=== PATIENT | female | born 1985 | race Hispanic/Latino ===

== ENCOUNTER 2018-09-06 03:38 | Emergency (ER) | payer MEDICAID ==
[2018-09-06] MEDS ORDERED: LIDOCAINE HCL 2% VISCOUS 15 ML UDCUP ONE (04:19)
[2018-09-06] MEDS ORDERED: KETOROLAC TROMETHAMINE 60 MG/2 ML VIAL ONE (04:20)
[2018-09-06] MEDS ORDERED: CLINDAMYCIN HCL 150 MG CAP ONE (04:20)
== END 2018-09-06 04:35 | disposition home or self-care (01) ==
LOC: EDH 03:38
DX: K05.10 Chronic gingivitis, plaque induced (principal); K08.89 Other specified disorders of teeth and supporting structures
CPT/HCPCS: 96372; 99283; J1885

== ENCOUNTER 2021-09-23 12:41 | Emergency (ER) | payer MEDICAID, OTHER ==
[~2021-09-23] VITALS: Ht 160 cm; Wt 99.8 kg
[2021-09-23 12:46] VITALS: BP 195/94
== END 2021-09-23 13:43 | disposition left against medical advice (07) ==
LOC: EDH 12:41
DX: S61.011A Laceration without foreign body of right thumb without damage to nail, initial encounter (principal); Z53.21 Procedure and treatment not carried out due to patient leaving prior to being seen by health care provider; X58.XXXA Exposure to other specified factors, initial encounter; Y93.89 Activity, other specified; Y92.89 Other specified places as the place of occurrence of the external cause; Y99.8 Other external cause status

== ENCOUNTER 2024-08-17 01:31 | Inpatient (IN) | payer SELFPAY ==
[~2024-08-17] VITALS: Ht 157.5 cm; Wt 102.6 kg
[2024-08-17] MEDS: hydrALAZine 20MG/ML VIAL IV ONE (02:03)
[2024-08-17] MEDS: [UNRECOGNIZED DRUG - OTHER] IV ONE (02:05)
[2024-08-17] MEDS: cefTRIAXone 1G VIAL IVPB ONE (02:06)
[2024-08-17] MEDS: acetaMINOPHEN 500 MG TABLET PO ONE (02:06)
[2024-08-17] MEDS: ALPRAZolam 0.5 MG TABLET PO ONE (02:06)
[2024-08-17] MEDS: ondanSETRON 4MG INJ IVP ONE (02:06)
[2024-08-17 02:07] LABS: BASOPHILS # (AUTO) 0.06 K/uL (0.00-0.20); BASOPHILS % (AUTO) 0.3 % (0.0-5.0); EOSINOPHILS # (AUTO) 0.02 K/uL (0.00-0.70); EOSINOPHILS % (AUTO) 0.1 % (0.0-8.0); HEMATOCRIT 43.5 % (36-48); IMMATURE GRANULOCYTE ABSOLUTE 0.14 K/uL (0-1); LYMPHOCYTES # (AUTO) 0.8 K/uL (1.0-4.8); LYMPHOCYTES % (AUTO) 4.4 % (21.0-51.0); MEAN CORPUSCULAR HEMOGLOBIN 26.5 pg (27.0-33.0); MEAN CORPUSCULAR HGB CONC 33.3 g/dL (32.0-36.0); MEAN CORPUSCULAR VOLUME 79.4 fL (79-99); MONOCYTES % (AUTO) 4.9 % (3.0-13.0); NEUTROPHILS # (AUTO) 17.2 K/uL (1.8-7.7); NEUTROPHILS % (AUTO) 89.6 % (40.0-77.0); PLATELET COUNT (AUTO) 178 K/uL (130-400); RED BLOOD CELL COUNT(AUTO) 5.48 MIL/uL (4.00-5.50); RED CELL DISTRIBUTION WIDTH 14.5 % (11.0-15.5); WHITE BLOOD COUNT (AUTO) 19.3 K/uL (4.8-10.8)
[2024-08-17] MEDS: hydrALAZine 20MG/ML VIAL ONE (02:07)
[2024-08-17 02:25] LABS: RAPID GROUP A STREP negative (NEGATIVE)
[2024-08-17 02:26] LABS: ALBUMIN 3.6 g/dL (3.5-5.0); BILIRUBIN,DIRECT 0.1 mg/dL (0.0-0.3); BILIRUBIN,TOTAL 0.7 mg/dL (0.2-1.0); CREATININE 0.9 mg/dL (0.5-1.0); TOTAL PROTEIN, SERUM 7.9 g/dL (6.0-8.3)
[2024-08-17 02:29] LABS: POTASSIUM 2.9 mmol/L (3.5-5.1)
[2024-08-17 02:31] LABS: WBC MORPHOLOGY CONSISTENT W/DIFF
[2024-08-17 02:36] LABS: COVID19 (SARS ANTIGEN RAPID) PRESUMPTIVE NEGATIVE (NEGATIVE); INFLUENZA TYPE A Negative For Type A (NEGATIVE); INFLUENZA TYPE B Negative For Type B (NEGATIVE)
--- NOTE | 2024-08-17 02:41 | ERN ---
General Chief Complaint: Low Back Pain/Injury Stated Complaint: BACK PAIN LEFT SIDE Time Seen by MD: 01:42 Time Seen by Midlevel: 01:42 Source: patient History of Present Illness Initial Comments 39-year-old female who presents to the emergency department due to left back/flank pain onset yesterday afternoon. Patient reports she took Tylenol. Reports nausea, vomiting, shortness of breath, abdominal pain. Patient states she had dysuria one week ago took [id number] medication and has resolved. PMHx HTN, patient is noncompliant has not taken medications x3 years. Allergies: Coded Allergies: No Known Allergies (Unverified Allergy, Unknown, 08/17/24) Past Medical History Past Medical History: Hypertension Past Surgical History: ROS Dictation Constitutional: Negative for fever,chills, and weight loss Eyes: Negative for injury, pain,redness, and discharge ENT: Negative for injury,pain or swelling Cardiovascular: Negative for chest pain, palpitations, and edema Respiratory: Negative for shortness of breath, cough, and wheezing, Abdomen/GI: Positive for abdominal pain, nausea, vomiting Negative for diarrhea, and constipation Back: Positive for left sided back/flank pain Negative for injury and pain : Negative for painful urination, bleeding or discharge MS/Extremity: Negative for injury and deformity Skin: Negative for rash, and discoloration Neuro: Negative for headache, weakness, numbness, tingling, and seizure Psych: Negative for suicide ideation, homicidal ideation, and hallucinations Physical Exam Physical Exam Dictation General: awake, alert, no acute distress Head/Face: Normocephalic, atraumatic Eyes: PERRL, EOMI, normal conjuctiva ENT: oral cavity clear, oral mucosa moist Neck: Supple, normal range of motion Cardiovascular: RRR, normal S1/S2 Respiratory: CTAB, no respiratory distress, no rales or wheezes Back: Left CVA tenderness Abdomen: Soft, non-tender, non-distended, no guarding or rebound. Skin: Warm, dry, normal turgor, no rash MS/Extremity: Pulses equal, no cyanosis, neurovascular intact, FROM Neuro: COAx4, GCS 15, strength 5/5, CN 2-12 intact, normal cerebellar exam, normal gait Psych: Normal behavior, mood, and affect normal Results Laboratory and Microbiology Lab and Micro Result Laboratory Tests Test 08/17/24 01:56 08/17/24 02:45 08/17/24 05:00 White Blood Count 19.3 K/uL (4.8-10.8) H Red Blood Count 5.48 MIL/uL (4.00-5.50) Hemoglobin 14.5 g/dL (12.0-16.0) Hematocrit 43.5 % (36-48) Mean Corpuscular Volume 79.4 fL (79-99) Mean Corpuscular Hemoglobin 26.5 pg (27.0-33.0) L Mean Corpuscular Hemoglobin Concent 33.3 g/dL (32.0-36.0) Red Cell Distribution Width 14.5 % (11.0-15.5) Platelet Count 178 K/uL (130-400) Mean Platelet Volume 11.1 fL (7.5-10.5) H Immature Granulocyte % (Auto) 0.7 % (0-1) Neutrophils (%) (Auto) 89.6 % (40.0-77.0) H Lymphocytes (%) (Auto) 4.4 % (21.0-51.0) L Monocytes (%) (Auto) 4.9 % (3.0-13.0) Eosinophils (%) (Auto) 0.1 % (0.0-8.0) Basophils (%) (Auto) 0.3 % (0.0-5.0) Neutrophils # (Auto) 17.2 K/uL (1.8-7.7) H Lymphocytes # (Auto) 0.8 K/uL (1.0-4.8) L Monocytes # (Auto) 1.0 K/uL (0.1-1.0) Eosinophils # (Auto) 0.02 K/uL (0.00-0.70) Basophils # (Auto) 0.06 K/uL (0.00-0.20) Absolute Immature Granulocyte (auto 0.14 K/uL (0-1) Nucleated Red Blood Cells 0.0 % (0.0-0.19) White Cell Morphology Comment CONSISTENT W/DIFF Sodium Level 135 mmol/L (136-145) L Potassium Level 2.9 mmol/L (3.5-5.1) *L Chloride Level 100 mmol/L (101-111) L Carbon Dioxide Level 26 mmol/L (21-32) Blood Urea Nitrogen 18 mg/dL (7-18) Creatinine 0.9 mg/dL (0.5-1.0) Glomerular Filtration Rate Calc 84 mL/min (>90) Random Glucose 214 mg/dL (70-105) H Lactic Acid Level 1.9 mmol/L (0.8-2.5) 1.7 mmol/L (0.8-2.5) Total Calcium 8.9 mg/dL (8.5-10.1) Total Bilirubin 0.7 mg/dL (0.2-1.0) Direct Bilirubin 0.1 mg/dL (0.0-0.3) Aspartate Amino Transf (AST/SGOT) 21 U/L (10-37) Alanine Aminotransferase (ALT/SGPT) 27 U/L (12-78) Alkaline Phosphatase 108 U/L (50-136) Total Protein 7.9 g/dL (6.0-8.3) Albumin 3.6 g/dL (3.5-5.0) Lipase 33 U/L (16-77) Influenza Type A Antigen Negative For Type A Influenza Type B Antigen Negative For Type B SARS-CoV-2 Antigen (Rapid) PRESUMPTIVE NEGATIVE Group A Streptococcus Rapid negative (NEGATIVE) Urine Color COLORLESS (YELLOW) Urine Appearance CLEAR (CLEAR) Urine pH 7.0 (5.0-8.0) Urine Specific [place] 1.009 (1.001-1.031) Urine Protein 100 mg/dL (NEGATIVE) H Urine Glucose (UA) 150 mg/dL (NEGATIVE) H Urine Ketones 5 mg/dL (NEGATIVE) H Urine Occult Blood MODERATE (NEGATIVE) H Urine Nitrate NEGATIVE (NEGATIVE) Urine Bilirubin NEGATIVE mg/dL (NEGATIVE) Urine Urobilinogen 0.2 mg/dL (0.2-1.0) Urine Leukocyte Esterase NEGATIVE Key/uL Urine RBC 11-25 /HPF (0-1) H Urine WBC 6-10 /HPF (0-1) H Urine Squamous Epithelial Cells RARE /HPF (0-2) Urine Bacteria None /HPF (None Seen) Urine HCG, Qualitative NEGATIVE (NEGATIVE) Urine Opiates Screen NEGATIVE (NEGATIVE) Urine Barbiturates Screen NEGATIVE (NEGATIVE) Urine Phencyclidine Screen NEGATIVE (NEGATIVE) Urine Amphetamines Screen NEGATIVE (NEGATIVE) Urine Benzodiazepines Screen NEGATIVE (NEGATIVE) Urine Cocaine Screen NEGATIVE (NEGATIVE) Urine Marijuana (THC) Screen NEGATIVE (NEGATIVE) Labs Reviewed?: Yes EKG/XRAY/US/CT/MRI EKG Comment Date: 08/17/2024 Time: 01:49 Rate: 132 EKG interpretation: Sinus tachycardia, probable left atrial enlargement, LVH with secondary repolarization abnormality, anterior ST elevation probably due to LVH, no STEMI Reviewed by ED Attending MDM MDM: Differential diagnosis: Sepsis of unclear etiology at this time-could be related to upper respiratory tract viral etiology, cystitis, pyelonephritis, cholecystitis, enterocolitis, pneumonia Rationale: 39-year-old female who presents to the emergency department due to left back/flank pain onset yesterday afternoon. Patient reports she took Tylenol. Reports nausea, vomiting, shortness of breath, abdominal pain. Patient states she had dysuria one week ago took [id number] medication and has resolved. PMHx HTN, patient is noncompliant has not taken medications x3 years. Previous outside records reviewed: Old ER visits. Risk of complication and/or morbidity or mortality of patient management: None Medications-Per medication reconciliation Need for hospitalization: Patient does meet criteria for hospitalization. Need for emergency major/minor surgery: No There are no social concerns with this patient. Prescription drug management Prescriptions will include symptomatic care Patient's prior external medical records from other ER visits were reviewed by me as indicated. Prior testing and results from previous visits were reviewed. Prior tests were taken into account with medical decision making and resource utilization, independent historian/historians were used to obtain complete medical history. I independently interpreted the test that were performed, results were reviewed by me and considered findings on radiology if ordered. Medical management and examination interpretation discussions were had by me with other qualified healthcare professionals as indicated for the patient's care. ED Course Orders Procedure Category Date Status Time Cbc With Differential LAB 08/17/24 Complete 01:42 Basic Metabolic Panel LAB 08/17/24 Complete 01:42 Urinalysis LAB 08/17/24 Complete W/Microscopic 01:42 Lipase LAB 08/17/24 Complete 01:42 Blood Cult HUMBERTO 08/17/24 In Process 01:42 Lactic Acid LAB 08/17/24 Complete 01:42 ,Urine Test LAB 08/17/24 Complete 01:42 Hepatic Function Panel LAB 08/17/24 Complete 01:42 Acetaminophen 500mg PHA 08/17/24 Complete Tab (Tylenol 500mg T 02:00 Hydralazine 20mg Inj PHA 08/17/24 Complete (Apresoline 20mg In 02:00 0.9%Nacl 1000ml (Ns PHA 08/17/24 Complete 1000ml) 02:00 Hydralazine 20mg Inj PHA 08/17/24 Complete (Apresoline 20mg In 01:47 Alprazolam 0.5mg PHA 08/17/24 Complete (Xanax 0.5mg) 02:00 Chest 1vw RAD 08/17/24 Taken 01:53 Ct Abdomen/Pelvis CT 08/17/24 Taken W/Contrast 01:55 Ceftriaxone 1g Vial PHA 08/17/24 Complete (Rocephine 1g Inj) 02:00 Ondansetron 4mg Inj PHA 08/17/24 Complete (Zofran 4mg Inj) 02:00 Covid19 (Sars Antigen LAB 08/17/24 Complete Rapid) 02:12 Rapid (Group A Strep) LAB 08/17/24 Complete 02:12 Influenza Type A & B, LAB 08/17/24 Complete Rapid 02:12 Potassium Chloride PHA 08/17/24 Complete 10meq/100ml ([place] 03:00 Nifedipine PHA 08/17/24 Complete (Nifedipine) 03:00 Morphine 4mg Syg PHA 08/17/24 Complete (Morphine 4mg Syg) 03:00 Culture Urine HUMBERTO 08/17/24 In Process 03:20 Drug Screen Urine LAB 08/17/24 Complete 03:24 Iohexol (Omnipaque) PHA 08/17/24 Complete 03:32 Cefepime Hcl 1 Gm PHA 08/17/24 Complete Vial (Maxipime 1 Gm Vi 05:00 Vancomycin 1g/250ml PHA 08/17/24 Complete Kit (Vancomycin 1g/2 05:00 Lactic Acid LAB 08/17/24 Complete 04:42 Current Medications Medications (Trade) Dose Ordered Sig/Mary Route PRN Reason Start Time Stop Time Status Last Admin Dose Admin Acetaminophen (TYLenol 500MG TAB) 1,000 mg ONCE ONCE PO 08/17/24 02:00 08/17/24 02:01 DC 08/17/24 02:06 Alprazolam (XANax 0.5MG) 0.5 mg ONCE ONCE PO 08/17/24 02:00 08/17/24 02:01 DC 08/17/24 02:06 Cefepime HCl (MAXipime 1 GM vial) 1 gm ONCE ONCE IVPB 08/17/24 05:00 08/17/24 05:01 DC 08/17/24 04:46 Ceftriaxone Sodium (ROCEphine 1G INJ) 1 gm ONCE ONCE IVPB 08/17/24 02:00 08/17/24 02:01 DC 08/17/24 02:06 Hydralazine HCl (APRESOLine 20MG INJ) 20 mg ONCE ONCE IV 08/17/24 02:00 08/17/24 02:01 DC 08/17/24 02:03 Hydralazine HCl (APRESOLine 20MG INJ) 20 mg STK-MED ONCE .ROUTE 08/17/24 01:47 08/17/24 01:53 DC Iohexol (Omnipaque) 75 ml STK-MED ONCE IV 08/17/24 03:32 08/17/24 03:37 DC Morphine Sulfate (morPHINE 4MG SYG) 4 mg ONCE ONCE IVP 08/17/24 03:00 08/17/24 03:01 DC 08/17/24 02:49 Nifedipine (nifeDIPine) 10 mg ONCE ONCE PO 08/17/24 03:00 08/17/24 03:01 DC 08/17/24 02:49 Ondansetron HCl (zoFRAN 4MG INJ) 4 mg ONCE ONCE IVP 08/17/24 02:00 08/17/24 02:01 DC 08/17/24 02:06 Potassium Chloride 100 ml @ 100 mls/hr ONCE ONCE IV 08/17/24 03:00 08/17/24 03:59 DC 08/17/24 03:09 Sodium Chloride 2,925 ml @ 975 mls/hr ONCE ONCE IV 08/17/24 02:00 08/17/24 04:59 DC 08/17/24 02:05 Vancomycin HCl (Vancomycin 1g/ 250ml Kit) 1 gm ONCE ONCE IV 08/17/24 05:00 08/17/24 05:01 DC 08/17/24 04:46 Vital Signs Date Time Temp Pulse Resp B/P (MAP) Pulse Ox O2 Delivery O2 Flow Rate FiO2 08/17/24 03:10 101.1 125 25 170/85 99 Room Air* 0 21 08/17/24 02:16 101.1 144 32 245/120 100 Room Air* 0 21 08/17/24 02:06 101.1 08/17/24 01:32 101.1 131 22 230/112 96 Room Air We will perform diagnostic labs, advanced imaging and administer medications according to the patient's complaint. Once the results are available, will review and personally interpreted the labs to rule out any acute life- threatening emergency the trach require immediate intervention and treatment. I will then re-evaluate the patient after treatment and diagnostic exams have return to determine whether the patient requires any further testing, can safely be discharged home or need further admission to hospital for additional treatment and evaluation. Sepsis pathway was initiated and patient received IV fluids at 30 mL/hour, brown cultures have been requested. Labs reviewed CBC showed a white count of 19.3 BNP 7 is significant for sodium of 135 chloride 2.9 glucose 214. LFTs are within normal limits lipase is 33. Lactic acid 1.9 Influenza, COVID, strep rapid screens were negative. Urinalysis shows occult and microscopic hematuria proteinuria and some glycosuria. No evidence of any WBCs or leuko esterase. Chest x-ray shows massive cardiomegaly there are no old chest x-rays to compare. A CT scan of the abdomen and pelvis was done to evaluate for source of sepsis- preliminary stat read reading showed normal appendix no hydronephrosis or nephrolithiasis. Overall it was a negative study Recommend admission to the hospital for management of sepsis of unclear etiology at this time which could still be GI related. The other issue is hypertensive crisis. She needs further evaluation of likely hypertension induced end-organ damage, diastolic dysfunction cardiomegaly etcetera. The persistent fever tachy and uncontrolled hypertension may reflect high sympathetic surge. UDS is negative for any recreational substances. She is agreeable 5:15 a.m. patient accepted by Dr. Wall covering for Dr. Trevino for admission for sepsis of unclear etiology, hypertensive crisis. Problem List Problem Lists: (1) Sepsis (2) Leukocytosis (3) Hypokalemia Critical Care Note Critical Time: 45 minutes Comments Life-threatening illness; severe sepsis, hypertensive crisis, leukocytosis, severe hypokalemia Risk of morbidity mortality-high Complexity of medical decision making-high (X) high probability of sudden clinically significant deterioration in the patient's condition required the highest level of my preparedness to intervene urgently. I provided critical care services requiring my direct and personal ma nagement as noted below; (x) chart data review (x) reviewing nurse's notes and/charts (x) documentation time (x) consultation collaboration on findings and therapy options (x) medication orders and management (x) re-evaluations (x) care, transfer of care, and discharge plans (x) ordering and interpreting studies (x) ordering and reviewing labs (x) obtaining necessary history from family, EMS, custodial, private MD, surrogate decision makers because patient was unable to give history due to limitations in the mental status (x) aggregate critical care time was ( 45 ) minutes. This includes only time during which I was engaged in work directly related to the patient's care as described above whether at the bedside or elsewhere in the ER while the patient was critical. My time did not include minutes spent treating any other patients simultaneously or on activities that did not directly contribute to the patient's treatment. It did not include time spent performing other reported procedures or services of residents if any. Megan Dillon MDFCCP DX & DISP Disposition: Inpatient Decision to Admit Date: August 17, 2024 Departure Impression: Primary Impression: Sepsis Additional Impressions: Hypokalemia, Leukocytosis, Hypertensive crisis, Microscopic hematuria, Cardiomegaly Critical Time: 45 minutes Condition: Stable Additional Instructions: Patient was informed of all the diagnostic labs and procedures conducted in the emergency room today and demonstrated understanding of the results. I personally reviewed and interpreted all the diagnostic exams performed in the ER today. The patient will be admitted to the hospital for further treatment and evaluation. Disposition-admit to facility Condition-stable/guarded Course-uncertain at this time Pain status-decreased Assessment-exam unchanged Admission Certification- I certify that the patients status is appropriate and is based on my best clinical judgment and the patient's condition as documented in the medical records Referrals: RERE TREVINO MD (PCP) I performed the substantive portion of the visit. I have reviewed and personally made and approve the management plan that is documented in the notes by myself or the DAVON. I acknowledge full responsibility for the patient's management plan. RAMESH BONNER August 17, 2024 02:41 MEGAN DILLON MD August 17, 2024 04:48
[2024-08-17] MEDS: nifeDIPine 10 MG CAP PO ONE (02:49)
[2024-08-17] MEDS: morPHINE 4 MG SYG IVP ONE (02:49)
[2024-08-17] MEDS: PoTASSium chloRIDE 10MEQ/100ML 100 ML IV ONE (03:09)
--- NOTE | 2024-08-17 03:11 | NUR ---
PATIENT NOT ON ANY HOME MEDS
[2024-08-17 03:16] LABS: APPEARANCE,URINE CLEAR (CLEAR); BILIRUBIN,URINE NEGATIVE (NEGATIVE); COLOR,URINE COLORLESS (YELLOW); GLUCOSE, URINE (UA) 150 mg/dL (NEGATIVE); KETONES,URINE 5 mg/dL (NEGATIVE); LEUKOCYTE ESTERASE ,URINE NEGATIVE Leu/uL (NEGATIVE); NITRATE,URINE NEGATIVE (NEGATIVE); OCCULT BLOOD,URINE MODERATE (NEGATIVE); PROTEIN,URINE 100 mg/dL (NEGATIVE); UROBILINOGEN,URINE 0.2 mg/dL (0.2-1.0)
[2024-08-17 03:18] LABS: HCG,QUALITATIVE URINE NEGATIVE (NEGATIVE)
[2024-08-17 03:20] LABS: MUCUS,URINE RARE LPF (None Seen); SQUAMOUS EPITHELIAL CELL,UR RARE /HPF (0-2)
--- NOTE | 2024-08-17 03:28 | NUR ---
PATIENT TO CT
[2024-08-17] MEDS ORDERED: IOHEXOL-350 75 ML VIAL IV ONE (03:32)
[2024-08-17 03:42] LABS: AMPHET/METH SCREEN,URINE NEGATIVE (NEGATIVE); BARBITURATE SCREEN, URINE NEGATIVE (NEGATIVE); BENZODIAZEPINES SCREEN,URINE NEGATIVE (NEGATIVE); CANNABINOID SCREEN,URINE NEGATIVE (NEGATIVE); COCAINE SCREEN,URINE NEGATIVE (NEGATIVE); OPIATE SCREEN,URINE NEGATIVE (NEGATIVE); PHENCYCLIDINE SCREEN,URINE NEGATIVE (NEGATIVE)
--- NOTE | 2024-08-17 03:49 | NUR ---
patient returned from CT
[2024-08-17] MEDS: ceFEPime HCL 1 GM VIAL IVPB ONE (04:46)
[2024-08-17] MEDS: VANCOMYCIN KIT 1 GM/250 ML IV.KIT IV ONE (04:46)
[2024-08-17] MEDS ORDERED: VANCOMYCIN KIT 1 GM/250 ML IV.KIT IV SCH (05:30)
[2024-08-17] MEDS: DEXTROSE 5 %-0.45 % NACL 1,000 ML IV SCH (05:34)
[2024-08-17] MEDS ORDERED: VANCOMYCIN PROTOCOL PER PHARMACY IV SCH (06:00)
--- NOTE | 2024-08-17 08:14 | HMCIMG ---
Exam Type: CT ABDOMEN/PELVIS W/CONTRAST Clinical Information: abdominal, left flank pain Comparison: None Contrast: 100 cc's Isovue 370 IV, no complications or adverse reactions CT Dose Index (CTDI): 31.60 mGy Dose Length Product (DLP): 1740.80 total mGy-cm Findings: No evidence of nephro or ureterolithiasis is found. No hydronephrosis or ureteral dilatation is seen. The lung bases are clear. The stomach is unremarkable. It shows no wall thickening. No gross ulceration is seen. It is not overly distended. There are no surrounding inflammatory changes. No wall lesions are identified to suggest cancer. The spleen is unremarkable. It is not enlarged. The pancreas shows normal anatomy. It is not fatty replaced. It shows no lesions. The pancreatic duct is not dilated. The gallbladder is unremarkable. It shows no cholelithiasis. The gallbladder wall is normal in thickness. There is no pericholecystic fluid. The is no acute or chronic inflammation noted. The adrenal glands are unremarkable. There is no enlargement. No lesions are noted. The liver is unremarkable. It shows no focal masses. The appendix is unremarkable. It shows no evidence of inflammation. No appendicolith is seen. The small bowel is unremarkable. There is no evidence of dilatation to suggest obstruction. No evidence of adynamic ileus is seen. There is no small bowel wall thickening to suggest enteritis. The colon is unremarkable. The urinary bladder is unremarkable. There is no wall thickening to suggest tumor or inflammation. There are no intraluminal calculi. There are no diverticula. There is no evidence of chronic bladder outlet obstruction. There is no evidence of urinary bladder distention to suggest urinary retention. The other pelvic structures are unremarkable. The bony and vascular structures are unremarkable for the patient's age. IMPRESSION: NEGATIVE CT SCAN OF THE ABDOMEN AND PELVIS WITH ORAL AND IV CONTRAST. This study was performed using dose reduction techniques to include automated exposure control and/or adjustment of the mA and/or kV according to patient size.
[2024-08-17] MEDS: acetaMINOPHEN 325 MG TAB PO PRN ×2 (08:42→19:43)
--- NOTE | 2024-08-17 08:59 | NUR ---
PT LEFT HAND NOTED PETECHIAE REDNESS AND SWELLING FROM HAND UP TO ELBOW, PT STATES CANNOT BEND ARM FEELS TIGHT STARTED EARLY HOURS OF MORNING. INFOMED ER DR LYNCH AT BEDSIDE, CALLED DR BATES AWARE AND DR BASHIR AWARE (POSSIBLE VANCOMYCIN ALLERGIC REACTION). PT MEDICATED AND WILL MONITOR.
--- NOTE | 2024-08-17 08:59 | NUR ---
DR DASH SENT A MESSAGE IN REFERENCE TO PT L HAND CONCERN/ISSUE AND WHAT MEDS ARE TO BE GIVEN PRIOR TO HER BEING TAKEN UPSTAIRS
[2024-08-17] MEDS: Solu-medROL 40MG VIAL IVP ONE (09:08)
[2024-08-17] MEDS: FAMOTIDINE 20MG VIAL IV ONE (09:08)
[2024-08-17] MEDS: DiphenhydrAMINE HCL 50 MG/ML VIAL IV ONE (09:08)
--- NOTE | 2024-08-17 09:26 | NUR ---
ORDERS OBTAINED FROM DR DASH FOR ART/EULA SONO OR LEFT UPPER ARM TO R/O DVT
[2024-08-17 09:30] VITALS: BP 171/79; PULSE 111; RESP 20; TEMP 98.9; O2SAT 98
--- NOTE | 2024-08-17 09:30 | NUR ---
PATIENT ON UNIT RECEIVED PATIENT FROM ER. NOTED PETECHIAE AND SWELLING TO PATIENT'S LEFT HAND. PATIENT STATES SHE IS UNABLE TO BEND LEFT ARM. DR. DASH AND DR. BASHIR AWARE. PATIENT AAOX3, IN NO APPARENT DISTRESS. BLOOD PRESSURE 167/62, ORDERS FOR ONE TIME DOSE OF METOPROLOL IV ORDERED.
--- NOTE | 2024-08-17 09:36 | HMCIMG ---
Exam Type: CHEST 1VW Clinical Information: sepsis Comparison: None Findings: The lungs are clear of infiltrates. The heart is enlarged. Bony and soft tissue structures of the chest wall are unremarkable. IMPRESSION: Cardiomegaly. Clear lungs.
[2024-08-17] MEDS ORDERED: PoTASSium chloRIDE 20MEQ/100ML 100 ML IV PRN (10:00)
[2024-08-17] MEDS ORDERED: PoTASSium chl 10% ELIXIR 20MEQ 20 MEQ/15 ML UDCUP PO PRN (10:00)
[2024-08-17] MEDS: metoPROLOL tartRATE 1 MG/ML 5ML VIAL IV ONE (11:13)
[2024-08-17 11:34] VITALS: BP 143/70; PULSE 105; RESP 20; TEMP 98.4
--- NOTE | 2024-08-17 12:02 | HMCIMG ---
US ARTERIAL UNILA UPP EXT DUPL HISTORY: SWELLING, DISCOMFORT AND DISCOLORATION TO L HAND/ARM TECHNIQUE: Doppler arterial ultrasound was performed using B mode, color flow and spectral analysis. FINDINGS: LEFT: Normal biphasic and triphasic waveforms were seen in the visualized arteries. Subclavian 185cm/s. Axillary 155cm/s. Brachial 93cm/s. Radial 112cm/s. Ulnar 88cm/s. IMPRESSION: No evidence of major vessel occlusion or high-grade stenosis.
--- NOTE | 2024-08-17 12:08 | HMCIMG ---
US VENOUS DOPPLER UNILATERAL INDICATION: Swelling. SWELLING, DISCOMFORT AND DISCOLORATION TO L HAND/ARM TECHNIQUE: US VENOUS DOPPLER UNILATERAL Real-time venous Doppler ultrasound was performed using B mode, color flow and spectral analysis. FINDINGS: The visualized subclavian, axillary, cephalic, basilic and brachial veins demonstrate normal compressibility and flow without evidence of DVT. IMPRESSION: No evidence of DVT in the visualized left extremity.
--- NOTE | 2024-08-17 12:36 | HMCSR ---
APPROVED REPORT EXAM: Two-dimensional and M-mode echocardiogram with Doppler and color Doppler. INDICATION ICD: I51.7 Cardiomegaly 2D Dimensions RVDd4.5 cmLVEF(%)64.6 (>50%)LVED Vol(simp.)54.0 mL IVSd2.1 (0.7-1.1cm)FS(%)35 %LVES Vol(simp.)20.0 mL LVDd3.8 (3.8-5.6cm)LA (2D)4.4 (1.6-4.0cm)LVEF(%, simp.)63 % PWd2.2 (0.7-1.1cm)Ao Root(2D)2.9 (2.0-3.7cm)LA ESV INDEX (BP)47.37 mL/m2 IVSs2.2 cmLVOT diam2.1 (1.8-2.4cm) LVDs2.5 (2.5-4.0cm)IVC diam0.9 cm PWs2.9 cm Deformation Strain Apical 4-10.6 % Apical 2-10.3 % Apical 3-8.2 % Global Strain-9.7 % M-Mode Dimensions LA (MM)4.5 (1.6-4.0cm) Ao Root(MM)2.8 (2.0-3.7cm) Aortic Valve AoV Vmax1.8 m/Desire Peak GR13.0 mmHgLVOT Vmax1.3 m/s AoV VTI0.3 mAo Mean GR7.7 mmHgLVOT VTI0.21 m UNIQUE (VMAX)2.50 cm2AVA (VTI) 2.5 cm2 Mitral Valve MV E Vmax94.6 cm/sDECEL Ldzt533 ms MV A Zawh223.5 cm/sP 1/2 T29 ms E/A ratio0.8MVA (PHT)7.7 cm2 TDI E/E' Nlghpw82.5E/E' Fhqfczs47.6 Medial E' Peak V3.32 cm/sLateral E' Peak V3.43 cm/s Pulmonary Valve PV Vmax1.4 m/sPV VTI0.21 mPV Mean GR4.2 mmHg PV Peak GR7.6 mmHg Tricuspid Valve TR Vmax2.0 m/sRAP (EST) 3 rbOaMKBK55.2 mmHg TR Peak GR15.2 mmHg Left Ventricle Left ventricular cavity is normal. GLS -10.0%. Apical sparing pattern present. Question amyloid. Shelia re concentric left ventricular hypertrophy. No LVOT obstruction noted. The LVEF is 60-65%. Stage II, diastolic dysfunction. Right Ventricle The right ventricle is mildly dilated. The right ventricular systolic function is normal. Right ventr icle GLS -16.0%. Atria The left atrium is moderately dilated. LASVI 47mL.m�. Cannot exclude PFO by color doppler. The right atrium size is normal. Aortic Valve The aortic valve is normal in structure. No aortic regurgitation is present. No aortic valvular veget ation noted. There is no aortic valvular stenosis. Mitral Valve Mitral valve leaflets open well. MIld posterior annular calcification noted. There is no mitral valve regurgitation noted. There are no mitral valve vegetation noted. There is no mitral valve stenosis. Tricuspid Valve The tricuspid valve leaflets open well. Moderate anterior tricuspid annular calcification noted. Ther e is trace of tricuspid valve regurgitation noted. There is no tricuspid valve vegetation. Pulmonic Valve The pulmonary valve is normal in structure. There is no pulmonic valvular regurgitation. There is no pulmonic valve vegetation. Great Vessels The aortic root is normal in size. The IVC is normal in size and collapses >50% with inspiration. Pericardium There is trivial pericardial effusion. Other Information Quality : Adequate Conclusion Severe concentric left ventricular hypertrophy. No LVOT obstruction noted. The LVEF is 60-65%. Stage II, diastolic dysfunction. GLS -10.0%. Apical sparing pattern present. Question amyloid. There is trivial pericardial effusion.
[2024-08-17] MEDS: PoTASSium chloRIDE 20MEQ ER 20 MEQ ERTAB PO PRN (14:26)
[2024-08-17 15:38] VITALS: BP 151/75; PULSE 94; RESP 20; TEMP 98.2
--- NOTE | 2024-08-17 16:01 | NUR ---
ABNORMAL CULTURE PATIENT WITH POSITIVE BLOOD CULTURE X 2. SHOWING GRAM NEGATIVE RODS. DR. DASH NOTIFIED. PER MD NO CONSULT TO ID. ORDER ZOSYN 3.375 IV Q8H.
--- NOTE | 2024-08-17 16:18 | EKG ---
[facility] Test Date: 2024-08-17 Test Time: 01:49:19 Pat Name: KRISTEL HONEYCUTT Department: [facility] Room: 321 1 Gender: F Webmaster: [id number] : 1985 Requested By: RAMESH BONNER Order Number: [id number] Reading MD: Acosta Liz Measurements Intervals Lloyd Rate: 132 P: 63 CT: 152 QRS: 57 QRSD: 96 T: 230 QT: 339 QTc: 504 Interpretive Statements Sinus tachycardia Probable left atrial enlargement LVH with secondary repolarization abnormality Anterior ST elevation, probably due to LVH No previous ECG available for comparison Electronically Signed On 08-18-2024 13:12:20 CDT by Acosta Liz Please click the below link to view image of tracing.
[2024-08-17] MEDS: VANCOMYCIN 1.25 GM/250 ML BAG 250 ML IV SCH (17:57)
[2024-08-17] MEDS: ZOSYN 3.375GM +NS 50ML IVPB SCH (17:57)
[2024-08-17] MEDS: metoPROLOL tartRATE 1 MG/ML 5ML VIAL IV PRN (19:48)
[2024-08-17 19:50] VITALS: O2SAT 98
--- NOTE | 2024-08-17 19:50 | NUR ---
MEDS SHIFT ASSESSMENT DONE, PLEASE REFER TO CHART. PT COMPLAINTS OF HEADACHE. PT'S BP IS ELEVATED AT 169/78 WITH HR=93. MEDICATED WITH TYLENOL PO FOR PAIN. KEPT RESTED AND COMFORTABLE IN BED. CALL LIGHT WITHIN REACH. WILL RE-ASSESS PT.
[2024-08-17 20:00] VITALS: BP 169/78; PULSE 93; RESP 20; TEMP 98.3
[2024-08-17 20:37] VITALS: BP 156/85; PULSE 90; RESP 20
--- NOTE | 2024-08-17 20:37 | NUR ---
MED-EFFECT RE-CHECKED PT. PT VERBALIZES RELIEF FROM HEADACHE. BP RE-PWYQP=300/85, HR=90. ENCOURAGED TO REST AND SLEEP.
--- NOTE | 2024-08-17 23:46 | NUR ---
BP PT'S BP ELEVATED AT 178/92, HR=92. DENIES ANY PAINS NOR DISCOMFORT AT THIS TIME. PAGED DR DASH VIA ANSWERING SERVICE. CALLED BACK AND REFERRED PT'S PERSIST HIGH BP. NEW MED ORDER RECEIVED, PLEASE REFER TO CPOE. WILL MEDICATE PT.
[2024-08-17] MEDS: metoPROLOL tartRATE 50 MG TAB PO ONE (23:59)
[2024-08-18] VITALS (10 sets, daily range): BP systolic 157–188; BP diastolic 74–106; PULSE 73–122; RESP 18–20; TEMP 98.4–99.4; O2SAT 94–97
[2024-08-18] MEDS: 0.9%NACL 50ML IV SCH (00:40)
--- NOTE | 2024-08-18 04:14 | NUR ---
BP PT'S BP ELEVATED AT 165/78, HR=77. PT IS ASYMPTOMATIC. NO DISTRESS NOTED. NO COMPLAINTS VERBALIZED. MEDICATED WITH LOPRESSOR IV ORDERED PRN. KEPT RESTED AND COMFORTABLE IN BED. WILL RE-ASSESS PT.
[2024-08-18 06:10] LABS: HEMATOCRIT 37.4 % (36-48); MEAN CORPUSCULAR HEMOGLOBIN 26.3 pg (27.0-33.0); MEAN CORPUSCULAR HGB CONC 32.6 g/dL (32.0-36.0); MEAN CORPUSCULAR VOLUME 80.8 fL (79-99); RED BLOOD CELL COUNT(AUTO) 4.63 MIL/uL (4.00-5.50); RED CELL DISTRIBUTION WIDTH 14.7 % (11.0-15.5); WHITE BLOOD COUNT (AUTO) 21.9 K/uL (4.8-10.8)
[2024-08-18 06:23] LABS: ALBUMIN 2.7 g/dL (3.5-5.0); BILIRUBIN,TOTAL 0.5 mg/dL (0.2-1.0); CREATININE 0.9 mg/dL (0.5-1.0); MAGNESIUM 1.8 mg/dL (1.80-2.40); POTASSIUM 3.9 mmol/L (3.5-5.1); TOTAL PROTEIN, SERUM 6.6 g/dL (6.0-8.3)
--- NOTE | 2024-08-18 11:00 | NUR ---
PATIENT COMPLAINT PATIENT COMPLAINING OF NAUSEA AND PAIN WHEN PASSING GAS. LAST BM 08/16. DR. DASH ON UNIT, PER MD ORDERS, ORDER LACTULOSE 30 X 1 NOW, ZOFRAN 4 MG Q6H FOR NAUSEA, METOPROLOL TARTRATE 100 MG BID HOLD FOR HEART RATE LESS THAN 60. ORDER CBC/CMP FOR 08/19.
[2024-08-18] MEDS: ondanSETRON 4MG INJ IVP PRN (11:50)
[2024-08-18] MEDS: LACTULOSE 20 GM/30 ML UDCUP PO ONE (11:50)
[2024-08-18] MEDS: MAGNESIUM 2GM PREMIX 50ML 50 ML IV PRN (13:23)
--- NOTE | 2024-08-18 15:49 | NUR ---
DCP HOME Pt awake, alert, oriented x3 lives with spouse Acosta Quezada [phone]. Pt is independent, does not use any medical equipment, has not been to skilled facility, or has any home health. Anticipates discharge is for home. Addendum: 08/18/24 at 1551 by AMISH JENKINS RN CM Amended: Links added.
--- NOTE | 2024-08-18 16:50 | NUR ---
PHYSICIAN NOTIFIED PATIENT WITH BLOOD PRESSURE OF 192/91, C/O HEADACHE AND SWEATING. TEMPERATURE OF 99.8 WITH HEART RATE OF 99. PER MD ORDER ADMINISTER AMLODIPINE 5 MG PO X 1 NOW.
[2024-08-18] MEDS: amLODIPine 5 MG TAB PO ONE (17:26)
[2024-08-18] MEDS: VANCOMYCIN 1.25 GM/250 ML BAG 250 ML IV SCH (17:26)
--- NOTE | 2024-08-18 17:30 | NUR ---
B/P RECHECK BLOOD PRESSURE RECHECKED 177/90 HR 90 TEMP 98.9. PATIENT DENIES PAIN/HEADACHE. NO DISTRESS NOTED.
[2024-08-18] MEDS: metoPROLOL tartRATE 50 MG TAB PO SCH (20:00)
--- NOTE | 2024-08-18 20:00 | NUR ---
MEDS SHIFT ASSESSMENT DONE, PLEASE REFER TO CHART. PT'S BP ELEVATED AT 188/98, QU=294 BPM. NO DISTRESS NOTED. NO COMPLAINTS VERBALIZED. MEDICATED WITH METOPROLOL PO. KEPT RESTED IN BED. WILL RE-CHECK PT'S BP.
--- NOTE | 2024-08-18 21:16 | NUR ---
RE-CHECK PT'S BP RE-MCLSTRS=862/74, HR=84. ENCOURAGED TO REST AND SLEEP. KEPT COMFORTABLE IN BED. CALL LIGHT WITHIN REACH.
--- NOTE | 2024-08-18 22:38 | PN ---
SUBJECTIVE: The patient is comfortable and afebrile. No chest pain, palpitation. No nausea or vomiting. She was admitted for assessment and treatment of fever and abdominal pain. Antibiotics were started. Blood cultures were sent. Workup with CT scans have been negative. Cultures have been positive for Gram-negative rods. She is currently on Zosyn. Currently, she is awake, alert, oriented in person and place. OBJECTIVE: VITAL SIGNS: Blood pressure 165/85, pulse 104, respiratory rate 20. HEENT: Normocephalic, atraumatic. LUNGS: Clear to auscultation. HEART: S1 and S2 are distant. ABDOMEN: Soft and nontender. EXTREMITIES: No clubbing or cyanosis. LABORATORY DATA: WBC count 21,000, hemoglobin 12.2, platelets 180,000. Sodium 136, potassium 3.9, BUN 15, creatinine 0.9, glucose 252, calcium 8.4. Total bilirubin 0.5, albumin 2.7. ASSESSMENT AND PLAN: * Sepsis. Positive Gram-negative rods. Continue Zosyn pending results of sensitivities. * Leukocytosis. Continue to monitor. Expected to improve with improvement of sepsis. * Hypertension. Continue with metoprolol with adjustment doses. * Echocardiogram shows LVH. No evidence of endocarditis, no pericardial effusion. Continue to monitor. * Follow up in a.m. with labs. TID: [id number] RECEIPT: [id number]
--- NOTE | 2024-08-18 23:26 | NUR ---
MEDS PT'S BP ELEVATED AT 169/78, HR=93 AND HRXBUBRPMRV=871.4. PT CLAIMS OF HEADACHE. MEDICATED WITH LOPRESSOR IV AND TYLENOL PO. KEPT ROOM TEMPERATURE COOL AND REMOVED EXTRA BLANKETS. WILL RE-ASSESS PT.
[2024-08-19] VITALS (12 sets, daily range): BP systolic 98–193; BP diastolic 54–94; PULSE 87–98; RESP 17–21; TEMP 97.6–100.4; O2SAT 94–96
--- NOTE | 2024-08-19 00:03 | NUR ---
RE-ASSESS INSERTED SECOND PIV TO LFA G20, PT TOLERATED PIV INSERTION. PT'S TEMPERATURE=98, HR=466/65 AND HR=92 BPM. DUE IV ANTIBIOTICS HUNG. ENCOURAGED TO REST AND SLEEP. CALL LIGHT WITHIN REACH.
--- NOTE | 2024-08-19 02:17 | HP ---
HISTORY OF PRESENT ILLNESS: The patient is supposed to be followed by Dr. Trevino, came to the Emergency Room complaining of left flank pain for 1 day, associated with nausea, vomiting, and shortness of breath. The patient refers having dysuria a week ago and took vcpr-mae-kozeiuk medications with resolution of symptoms. PAST MEDICAL HISTORY: Hypertension. ALLERGIES: None. REVIEW OF SYSTEMS: CONSTITUTIONAL: There has been no fever or chills. No seizures. No loss of consciousness. HEENT: No sore throat. No diplopia, dysarthria, dysphonia, dysphagia. No cough, wheezes, or rhonchi. No chest pain, palpitations, or dizziness. GASTROINTESTINAL: Positive for abdominal pain, left upper quadrant, dull, persistence, associated with nausea and vomiting. No diarrhea. No hematemesis, melena, or rectal bleeding. GENITOURINARY: Currently, no dysuria, urgency, or frequency. No hematuria. SKIN: No rashes, petechiae, or ecchymoses. PSYCHIATRIC: No hallucinations, delusions, or suicidal ideations. EXTREMITIES: No paresthesias. No headache, numbness, or tingling. PHYSICAL EXAMINATION: GENERAL: She is currently awake, alert, and oriented in person, time, and place, not in distress. VITAL SIGNS: In the chart. HEENT: Normocephalic, atraumatic. LUNGS: Clear to auscultation. HEART: S1 and S2 are distant. ABDOMEN: Soft, nontender. No masses. EXTREMITIES: No clubbing or cyanosis. No edema. NEUROLOGIC: Cranial nerves 2 through 12 grossly preserved. LABORATORY DATA: WBC count 19,000, hemoglobin 14.5, platelets are 178. Sodium 135, potassium 2.9, chloride 100, carbon dioxide 26, creatinine 0.9, calcium 8.9. Direct bilirubin 0.1, total bilirubin 0.7, total protein 7.9. Influenza A and B and COVID test negative. Urinalysis, positive for occult blood, rbc's in urine 11-25, wbc 6-10. Substance abuse screening test negative. IMAGING STUDIES: Chest x-ray was reported with no infiltrates or effusions, but cardiomegaly. EKG showed sinus tachycardia, LVH, anterior ST-elevation, probably due to LVH, no STEMI. ASSESSMENT AND PLAN: * Fever, abdominal pain, leukocytosis. The patient will be admitted and started her on IV antibiotics. She has been pancultured. * Hypertension. Continue with Lopressor 2.5 mg IV every 8 hours p.r.n. Continue with IV fluids. ID consultation will be made. * Follow up in a.m. with results of tests. * Hypokalemia. Follow protocol. TID: [id number] RECEIPT: [id number]
--- NOTE | 2024-08-19 05:13 | NUR ---
PAGED PT STILL HAS PERSISTENTLY HIGH BP ON RE-LPDQX=094/92, HR=98. PT IS AT REST AND NO COMPLAINTS VERBALIZED NO DISTRESS NOTED. SKY DELEON PLUSH FINISHER, DR MARY, VIA ANSWERING SERVICE. AWAITING CALL BACK.
--- NOTE | 2024-08-19 05:18 | NUR ---
MD DR DASH CALLED BACK AND REFERRED PT'S ELEVATED BP AND SPIKE OF TEMPERATURE WITH T-MAX OF 100.4 AT MIDNIGHT. NEW MED ORDERS GIVEN, PLEASE REFER TO CPOE.
[2024-08-19] MEDS: metoPROLOL tartRATE 50 MG TAB PO ONE (05:29)
[2024-08-19 06:08] LABS: HEMATOCRIT 38.2 % (36-48); MEAN CORPUSCULAR HEMOGLOBIN 26.4 pg (27.0-33.0); MEAN CORPUSCULAR HGB CONC 33.2 g/dL (32.0-36.0); MEAN CORPUSCULAR VOLUME 79.4 fL (79-99); PLATELET COUNT (AUTO) 202 K/uL (130-400); RED BLOOD CELL COUNT(AUTO) 4.81 MIL/uL (4.00-5.50); RED CELL DISTRIBUTION WIDTH 14.6 % (11.0-15.5); WHITE BLOOD COUNT (AUTO) 13.9 K/uL (4.8-10.8)
[2024-08-19 06:21] LABS: BILIRUBIN,TOTAL 0.9 mg/dL (0.2-1.0); CREATININE 0.7 mg/dL (0.5-1.0); MAGNESIUM 1.8 mg/dL (1.80-2.40); POTASSIUM 3.1 mmol/L (3.5-5.1); TOTAL PROTEIN, SERUM 7.1 g/dL (6.0-8.3)
[2024-08-19] MEDS: metoPROLOL tartRATE 50 MG TAB PO SCH (09:18)
--- NOTE | 2024-08-19 11:13 | PN ---
INFECTIOUS DISEASE PROGRESS NOTE Date of Service: August 19, 2024 SUBJECTIVE: This is a 39-year-old female patient with past medical history of hypertension, diabetes mellitus, asthma, kidney stones and urinary tract infection who presented to the emergency room for chief complaints of abdominal pain radiating to the left lower back, nausea, vomiting and shortness of breath. Patient reported having some mild dysuria and urinary frequency about a week ago but she got over the counter Azo cranberry and the symptoms subsided. Reported having fever and chills. On admission to the hospital patient had a fever of 101.1 with an elevated WBC of 19.3 and a lactic acid of 1.9. Urine culture and blood culture has been collected. The preliminary blood cultures growing Gram- negative rods. Patient has been started on vancomycin and Zosyn. During examination observe patient having a nonproductive cough. Patient had a low-grade fever of 100.4 last night at midnight the WBC has trended down to 13.9 today. We will swab for influenza and COVID-19 virus. We will obtain a CT of the abdomen and pelvis. We will continue current IV antibiotics and follow up on the final cultures results. Antibiotics to be adjusted when culture is updated or finalized. REVIEW OF SYSTEMS CONSTITUTIONAL: Positive for fever and chills POA. HEAD/FACE: No signs of trauma. EENT: Denies eye pain, blurred vision, double vision, or light sensitivity. RESPIRATORY: Denies shortness of breath, cough, wheezing CARDIOVASCULAR: Denies chest pain, palpitation, syncope GASTROINTESTINAL/ABDOMINAL: Denies abdominal pain, constipation, diarrhea, nausea or vomiting. Abdominal pain radiating to the left lower back POA GENITOURINARY: Denies dysuria or hematuria. MUSCULOSKELETAL: Denies joint pain, tenderness, or trauma. INTEGUMENTARY: Denies rash or itchiness NEUROLOGICAL/PSYCH: Denies anxiety, depression, heat or cold intolerance. PHYSICAL EXAM EYES: Anicteric. Pupils equal and reactive. HENT: No oral thrush seen, moist Oral mucosa. NECK: Supple, no JVD or thyromegaly. LUNGS: Good air entry. No rales, no rhonchi. Nonproductive cough. CARDIOVASCULAR: S1, S2 regular. No murmur heard. ABDOMEN: Soft, non tender, bowel sounds present, no organomegaly. Abdominal pain radiating to the left lower back. CENTRAL NERVOUS SYSTEM: Awake, alert, oriented x 3. SKIN: No rashes, no swelling. LYMPHATICS: No peripheral lymphadenopathy. MUSCULOSKELETAL: No joint swelling, erythema or tenderness. EXTREMITIES: No cyanosis or clubbing. BACK: No deformity, no pressure ulcer. Left lower back pain. GENITOURINARY: No dysuria or hematuria. Vital Sign (Last 12 Hours) 08/18/24 08/18/24 08/19/24 08/19/24 23:25 23:26 00:00 00:30 Temp 100.4 100.4 98.1 Pulse 98 98 92 Resp 20 B/P (MAP) 182/77 182/77 156/65 Pulse Ox 96 O2 Delivery Room Air 08/19/24 08/19/24 08/19/24 08/19/24 04:00 04:00 05:05 07:09 Temp 98.1 98.1 98.2 Pulse 98 98 98 87 Resp 20 20 18 B/P (MAP) 165/94 165/94 172/92 193/94 Pulse Ox 94 94 94 O2 Delivery Room Air Room Air Room Air O2 Flow Rate 08/19/24 08/19/24 07:10 07:55 Pulse 87 B/P (MAP) 193/94 166/94 Intake & Output (last 24hrs) 08/18/24 08/18/24 08/19/24 15:00 23:00 07:00 Intake Total 2300 ml 1580.0 ml Balance 2300 ml 1580.0 ml LABS: Laboratory: Test 08/19/24 05:48 08/18/24 16:12 08/18/24 11:01 Range/Units White Blood Count 13.9 #H 4.8-10.8 K/uL Red Blood Count 4.81 4.00-5.50 MIL/uL Hemoglobin 12.7 12.0-16.0 g/dL Hematocrit 38.2 36-48 % Mean Corpuscular Volume 79.4 79-99 fL Mean Corpuscular Hemoglobin 26.4 L 27.0-33.0 pg Mean Corpuscular Hemoglobin Concent 33.2 32.0-36.0 g/dL Red Cell Distribution Width 14.6 11.0-15.5 % Platelet Count 202 130-400 K/uL Mean Platelet Volume 11.9 H 7.5-10.5 fL Nucleated Red Blood Cells 0.0 0.0-0.19 % Sodium Level 137 136-145 mmol/L Potassium Level 3.1 L 3.5-5.1 mmol/L Chloride Level 101 101-111 mmol/L Carbon Dioxide Level 26 21-32 mmol/L Blood Urea Nitrogen 8 7-18 mg/dL Creatinine 0.7 0.5-1.0 mg/dL Glomerular Filtration Rate Calc 114 >90 mL/min Random Glucose 185 H 70-105 mg/dL Total Calcium 8.2 L 8.5-10.1 mg/dL Magnesium Level 1.80 1.80-2.40 mg/dL Total Bilirubin 0.9 # 0.2-1.0 mg/dL Aspartate Amino Transf (AST/SGOT) 19 10-37 U/L Alanine Aminotransferase (ALT/SGPT) 14 # 12-78 U/L Alkaline Phosphatase 87 50-136 U/L Total Protein 7.1 6.0-8.3 g/dL Albumin 3.0 L 3.5-5.0 g/dL Vancomycin Level Trough 5.5 L 10.0-20.0 UG/ML Whole Blood Glucose 214 H 70-110 MG/DL DIAGNOSTICS / RADIOLOGY: PATIENT: KRISTEL HONEYCUTT ACCT: [id number] LOC: [facility] U: [id number] AGE/SX: 39/F ROOM: [facility] RE08/17/[address]: REGAN DASH MD : 1985 BED: 1 DIS: STATUS: ADM IN TLOC: SPEC: [id number] LATA: 08/17/24 STATUS: RES REQ: [id number] RECD: 08/17/24-[address]: RAMESH BONNER SOURCE: BLOOD ENTR: 08/17/[address]: RERE MORRISON MD SPDESC: BLOOD NONE ORDERED: AERO ID & SENS Procedure Result Mery Date-Time AEROBIC ID & SENSITIVITIES Preliminary 08/19/24-0846 MRL COLONY DESCRIPTION: DAY 1: GRAM STAIN FROM BLOOD CULTURE BOTTLE GRAM NEGATIVE RODS PEDIATRIC BOTTLE ISOLATION IN PROGRESS DAY 2: GRAM NEGATIVE RODS IDENTIFICATION AND SENSITIVITY TO FOLLOW Test(s) performed by: [facility] [address] [place] [place] [address] ASSESSMENT: Gram-negative bacteremia. Leukocytosis. Abdominal pain. Hypokalemia. Diabetes mellitus. Hypertension. Asthma. PLAN: Continue vancomycin as currently ordered. Continue Zosyn. Swab for influenza and COVID-19. Obt[address] CT of the abdomen and pelvis with and without contrast. We will follow up on the final culture results. Continue monitoring glucose levels. Continue pain management. We will monitor electrolytes. Antibiotics to be adjusted when culture is updated or finalized. Thank you for allowing ID to participate in the care of this patient. This case was reviewed and discussed with my supervising physician and the above assessment and plan was formulated and agreed upon. ATTESTATION BY PHYSICIAN I have seen and examined the patient. I reviewed the documentation, medical decision making, and treatment plan as noted by the mid-level provider above. I agree with the findings and plan of care. YOCASTA BASHIR MD, MIRTA L [facility] August 19, 2024 11:13
[2024-08-19 12:25] LABS: LYMPHOCYTES % (MANUAL) 12 % (22-44); MAN.DIFF COMMENT-IMPRESSION MANUAL DIFFERENTIAL; MONOCYTES % (MANUAL) 6 % (2-9); PLATELET MORPHOLOGY COMMENT ADEQUATE; REACTIVE LYMPHOCYTES 1 % (0-0); SEGMENTED NEUTROPHILS % 81 % (40-70); TOTAL CELLS COUNTED 100; WBC MORPHOLOGY VACUOLATION 1+
[2024-08-19 13:27] LABS: COVID19 (SARS ANTIGEN RAPID) PRESUMPTIVE NEGATIVE (NEGATIVE); INFLUENZA TYPE A Negative For Type A (NEGATIVE); INFLUENZA TYPE B Negative For Type B (NEGATIVE)
--- NOTE | 2024-08-19 22:29 | PN ---
SUBJECTIVE: The patient is still having hypertension. We are adjusting the medications. Continue with metoprolol p.r.n. IV. She denies any fever overnight. Continue with IV antibiotics. Currently awake, alert, and oriented in person, time, and place. Not in distress. OBJECTIVE: VITAL SIGNS: Blood pressure is 166/94, pulse is 87, respiratory rate is 19. HEENT: Normocephalic, atraumatic. LUNGS: Clear to auscultation. ABDOMEN: Soft, nontender. EXTREMITIES: No clubbing or cyanosis. LABORATORY DATA: WBC count down to 13.9, hemoglobin 12.7, platelets 202. Sodium 137, potassium 3.1, BUN 8, creatinine 0.7, and albumin 3. ASSESSMENT AND PLAN: Sepsis with positive blood cultures to Gram negative rods, pending ID and sensitivities though a good response to Zosyn, will continue the same. The patient is improving. Follow up in a.m. with labs. TID: [id number] RECEIPT: [id number]
[2024-08-20 01:29] VITALS: BP 179/86; PULSE 75; RESP 18; TEMP 98.2
[2024-08-20 03:47] VITALS: BP 182/85; PULSE 68; RESP 19; TEMP 97.5
[2024-08-20 08:00] VITALS: BP 191/85; PULSE 76; RESP 18; TEMP 97.8
[2024-08-20] MEDS: amLODIPine 5 MG TAB PO SCH (09:41)
[2024-08-20] MEDS: levoFLOXacin 750 MG TABLET PO SCH (09:41)
[2024-08-20] MEDS: LISINOPRIL 20 MG TABLET PO SCH (10:24)
[2024-08-20 12:00] VITALS: BP 194/79; PULSE 85; RESP 18; TEMP 98.9
[2024-08-20] MEDS: metOPROLol sucCINATE 50 MG TAB.SR.24H PO SCH (12:15)
--- NOTE | 2024-08-20 15:14 | PN ---
INFECTIOUS DISEASE PROGRESS NOTE Date of Service: August 20, 2024 SUBJECTIVE: This is a 39-year-old female patient who was seen and examined at bedside in room 321. Patient reported improvement. The final blood culture results came back positive for E coli. The vancomycin and Zosyn has been discontinued and patient has been started on levofloxacin p.o. From Infectious Disease standpoint patient can be discharged to home on levofloxacin as currently ordered. We will sign off at this time. PHYSICAL EXAM EYES: Anicteric. Pupils equal and reactive. HENT: No oral thrush seen, moist Oral mucosa. NECK: Supple, no JVD or thyromegaly. LUNGS: Good air entry. No rales, no rhonchi. Nonproductive cough. CARDIOVASCULAR: S1, S2 regular. No murmur heard. ABDOMEN: Soft, non tender, bowel sounds present, no organomegaly. Abdominal pain radiating to the left lower back. CENTRAL NERVOUS SYSTEM: Awake, alert, oriented x 3. SKIN: No rashes, no swelling. LYMPHATICS: No peripheral lymphadenopathy. MUSCULOSKELETAL: No joint swelling, erythema or tenderness. EXTREMITIES: No cyanosis or clubbing. BACK: No deformity, no pressure ulcer. Left lower back pain. GENITOURINARY: No dysuria or hematuria. Vital Sign (Last 12 Hours) 08/20/24 08/20/24 08/20/24 03:47 08:00 12:00 Temp 97.5 97.9 99.0 Pulse 68 76 85 Resp 19 18 18 B/P (MAP) 182/85 191/85 194/79 Pulse Ox 95 95 97 O2 Delivery Room Air Room Air Room Air FiO2 21 21 LABS: Laboratory: Test 08/20/24 07:38 08/19/24 12:54 08/19/24 05:48 Range/Units Vancomycin Level Trough 18.6 # 10.0-20.0 UG/ML Influenza Type A Antigen Negative For Type A NEGATIVE Influenza Type B Antigen Negative For Type B NEGATIVE SARS-CoV-2 Antigen (Rapid) PRESUMPTIVE NEGATIVE NEGATIVE White Blood Count 13.9 #H 4.8-10.8 K/uL Red Blood Count 4.81 4.00-5.50 MIL/uL Hemoglobin 12.7 12.0-16.0 g/dL Hematocrit 38.2 36-48 % Mean Corpuscular Volume 79.4 79-99 fL Mean Corpuscular Hemoglobin 26.4 L 27.0-33.0 pg Mean Corpuscular Hemoglobin Concent 33.2 32.0-36.0 g/dL Red Cell Distribution Width 14.6 11.0-15.5 % Platelet Count 202 130-400 K/uL Mean Platelet Volume 11.9 H 7.5-10.5 fL Segmented Neutrophils % 81 H 40-70 % Lymphocytes % (Manual) 12 L 22-44 % Monocytes % (Manual) 6 2-9 % Nucleated Red Blood Cells 0.0 0.0-0.19 % Differential Comment MANUAL DIFFERENTIAL Reactive Lymphocytes 1 H 0-0 % White Cell Morphology Comment VACUOLATION 1+ Platelet Morphology Comment ADEQUATE Red Blood Cell Morphology NORMAL Sodium Level 137 136-145 mmol/L Potassium Level 3.1 L 3.5-5.1 mmol/L Chloride Level 101 101-111 mmol/L Carbon Dioxide Level 26 21-32 mmol/L Blood Urea Nitrogen 8 7-18 mg/dL Creatinine 0.7 0.5-1.0 mg/dL Glomerular Filtration Rate Calc 114 >90 mL/min Random Glucose 185 H 70-105 mg/dL Total Calcium 8.2 L 8.5-10.1 mg/dL Magnesium Level 1.80 1.80-2.40 mg/dL Total Bilirubin 0.9 # 0.2-1.0 mg/dL Aspartate Amino Transf (AST/SGOT) 19 10-37 U/L Alanine Aminotransferase (ALT/SGPT) 14 # 12-78 U/L Alkaline Phosphatase 87 50-136 U/L Total Protein 7.1 6.0-8.3 g/dL Albumin 3.0 L 3.5-5.0 g/dL DIAGNOSTICS / RADIOLOGY: PATIENT: KRISTEL HONEYCUTT ACCT: [id number] LOC: [facility] U: [id number] AGE/SX: 39/F ROOM: 321 RE08/17/[address]: REGAN DASH MD : 1985 BED: 1 DIS: STATUS: ADM IN TLOC: SPEC: [id number] LATA: 08/17/24 STATUS: COMP REQ: [id number] RECD: 08/17/[address] [facility] [address]: RAMESH BONNER SOURCE: BLOOD ENTR: 08/17/[address] [facility] DR: RERE MORRISON MD [facility]: BLOOD NONE ORDERED: AERO ID & SENS Procedure Result Mery Date-Time AEROBIC ID & SENSITIVITIES Final 08/20/24-0634 MRL COLONY DESCRIPTION: DAY 1: GRAM STAIN FROM BLOOD CULTURE BOTTLE GRAM NEGATIVE RODS PEDIATRIC BOTTLE ISOLATION IN PROGRESS DAY 2: GRAM NEGATIVE RODS IDENTIFICATION AND SENSITIVITY TO FOLLOW ESCHERICHIA COLI E COLI M.I.C. RX --------- ---- AMPICILLIN >16 R AZTREONAM <=4 S CEFAZOLIN >16 R CEFTAZIDIME/AVIBACTAM <=8 S CEFTRIAXONE <=1 S GENTAMICIN <=2 S LEVOFLOXACIN <=0.5 S AMPICILLIN/SULBACTAM >16/8 R MEROPENEM <=1 S PIPERACILLIN/TAZOBACTAM >64 R TRIMETHOPRIM/SUFLAMETHOXAZOLE <=2/38 S ASSESSMENT: E Coli bacteremia. Leukocytosis. Abdominal pain. Hypokalemia. Diabetes mellitus. Hypertension. Asthma. PLAN: Vancomycin and Zosyn has been discontinued. Patient has been started on levofloxacin. From Infectious Disease standpoint patient can be discharged to home on levofloxacin as currently ordered. We will sign off at this time. This case was reviewed and discussed with my supervising physician and the above assessment and plan was formulated and agreed upon. ATTESTATION BY PHYSICIAN I have seen and examined the patient. I reviewed the documentation, medical decision making, and treatment plan as noted by the mid-level provider above. I agree with the findings and plan of care. YOCASTA BASHIR MD, MIRTA L [facility] August 20, 2024 15:14
[2024-08-20 16:00] VITALS: BP 169/71; PULSE 80; RESP 20; TEMP 98
[2024-08-20 21:51] VITALS: BP 162/97; PULSE 83; RESP 19; TEMP 98.4
--- NOTE | 2024-08-20 23:22 | PN ---
SUBJECTIVE: Comfortable, afebrile. Abdominal pain has subsided, fever as well. Continue with IV antibiotics; however, blood pressure is still elevated. OBJECTIVE: GENERAL: Currently awake, alert, and oriented in person, time, and place. VITAL SIGNS: Blood pressure is 194/79, pulse 85, respirations 18. HEENT: Normocephalic, atraumatic. LUNGS: Clear to auscultation. HEART: S1, S2 are distant. ABDOMEN: Soft, nontender, no masses. LABORATORY DATA: WBC count 13.9 yesterday. Sodium 137, potassium 3.1, creatinine 0.7. Blood cultures positive for E. coli sensitive to all antibiotics except for ampicillin, sulbactam, cefazolin and ampicillin as well as Zosyn (?). ASSESSMENT AND PLAN: * Sepsis controlled, blood culture positive for E. coli sensitive to Zosyn that was being receiving the last few days. Sensitive to Levaquin. We are going to change Zosyn to Levaquin p.o. * Hypertension: Continue with metoprolol. We will change to metoprolol succinate 100 mg p.o. b.i.d. Continue with amlodipine 5 mg daily and add lisinopril 20 mg p.o. daily. Follow up in a.m. Plan to discharge in a.m. if stable. TID: [id number] RECEIPT: [id number]
[2024-08-21] VITALS (7 sets, daily range): BP systolic 155–186; BP diastolic 58–92; PULSE 71–84; RESP 18–19; TEMP 97.6–98.5
[2024-08-21 06:08] LABS: BASOPHILS # (AUTO) 0.03 K/uL (0.00-0.20); BASOPHILS % (AUTO) 0.3 % (0.0-5.0); EOSINOPHILS % (AUTO) 2.1 % (0.0-8.0); HEMATOCRIT 38.7 % (36-48); IMMATURE GRANULOCYTE ABSOLUTE 0.04 K/uL (0-1); LYMPHOCYTES # (AUTO) 1.9 K/uL (1.0-4.8); MEAN CORPUSCULAR HEMOGLOBIN 26.1 pg (27.0-33.0); MEAN CORPUSCULAR HGB CONC 33.1 g/dL (32.0-36.0); MEAN CORPUSCULAR VOLUME 78.8 fL (79-99); MONOCYTES # (AUTO) 0.9 K/uL (0.1-1.0); NEUTROPHILS # (AUTO) 6.5 K/uL (1.8-7.7); NEUTROPHILS % (AUTO) 68.2 % (40.0-77.0); PLATELET COUNT (AUTO) 244 K/uL (130-400); RED BLOOD CELL COUNT(AUTO) 4.91 MIL/uL (4.00-5.50); RED CELL DISTRIBUTION WIDTH 14.1 % (11.0-15.5); WHITE BLOOD COUNT (AUTO) 9.6 K/uL (4.8-10.8)
[2024-08-21 06:30] LABS: ALBUMIN 2.7 g/dL (3.5-5.0); BILIRUBIN,TOTAL 0.5 mg/dL (0.2-1.0); CREATININE 0.7 mg/dL (0.5-1.0); POTASSIUM 3.3 mmol/L (3.5-5.1)
[2024-08-21] MEDS: cloNIDine HCL 0.1 MG TABLET PO ONE (16:48)
== END 2024-08-21 18:24 | disposition home or self-care (01) | DRG 872 ==
LOC: EDH 01:31 → EDHIP 01:32 → 3DH 06:30
PROVIDERS: ADMIT Internal Medicine; ATTEND Internal Medicine
DX: A41.51 Sepsis due to Escherichia coli [E. coli] (principal); I16.9 Hypertensive crisis, unspecified; E11.9 Type 2 diabetes mellitus without complications; E87.6 Hypokalemia; I11.9 Hypertensive heart disease without heart failure; B96.20 Unspecified Escherichia coli [E. coli] as the cause of diseases classified elsewhere; J45.909 Unspecified asthma, uncomplicated; B96.89 Other specified bacterial agents as the cause of diseases classified elsewhere; Z79.899 Other long term (current) drug therapy; Z87.442 Personal history of urinary calculi; Z91.199 Patient's noncompliance with other medical treatment and regimen due to unspecified reason; Z98.891 History of uterine scar from previous surgery
CPT/HCPCS: 36415; 71045; 74177; 80048; 80053; 80076; 80202; 80305; 81001; 81025; 82948; 83605; 83690; 83735; 84132; 85025; 85027; 87040; 87086; 87186; 87426; 87804; 87880; 93005; 93306; 93356; 93931; 93971; 96374; 96375; 99291; G0378; J0360; J0692; J0696; J1200; J2270; J2405; J2543; J2919; J3370; J3475; J3480; J3490; J7030; J7042; Q9967; 3370